=== PATIENT | female | born 1985 ===

== ENCOUNTER 2018-05-16 08:40 | Emergency (ER) | payer OTHER, MEDICAID ==
[2018-05-16 08:45] VITALS: BMI 30.1
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
[2018-05-16] MEDS ORDERED: Oxycodone/Acetaminophen 5/325 mg Tab PO ONE (09:38)
[2018-05-16] MEDS ORDERED: Oxycodone/Acetaminophen 5/325 mg Tab ONE (09:42)
--- NOTE | 2018-05-16 10:15 | CT ---
Date of service: 05/16/2018 PROCEDURE: CT HEAD WITHOUT CONTRAST. HISTORY: headache COMPARISON: None available. TECHNIQUE: Axial computed tomography images were obtained through the head/brain without intravenous contrast. Radiation dose: Total exam DLP = 856.85 mGy-cm. This CT exam was performed using one or more of the following dose reduction techniques: Automated exposure control, adjustment of the mA and/or kV according to patient size, and/or use of iterative reconstruction technique. FINDINGS: HEMORRHAGE: No intracranial hemorrhage. BRAIN: Normal solano-white matter differentiation and density are appreciated throughout the cerebrum and cerebellum with the brainstem appearing unremarkable as well. There is no mass effect. There is no suspicious extra-axial fluid collection and the midline brain anatomy appears diffusely unremarkable. VENTRICLES: Unremarkable. No hydrocephalus. CALVARIUM: No destructive bony lesion or displaced fracture identified including through the skullbase. PARANASAL SINUSES: Trace left sphenoid sinusitis. MASTOID AIR CELLS: Unremarkable as visualized. No inflammatory changes. OTHER FINDINGS: None. IMPRESSION: Unremarkable CT of the Head.
--- NOTE | 2018-05-16 10:43 | CT ---
Date of service: 05/16/2018 PROCEDURE: CT Cervical Spine without contrast HISTORY: neck pain COMPARISON: None available. TECHNIQUE: Axial computed tomography images were obtained of the cervical spine without the use of intravenous contrast. Coronal and sagittal reformatted images were created and reviewed. Radiation dose: Total exam DLP = 285.95 mGy-cm. This CT exam was performed using one or more of the following dose reduction techniques: Automated exposure control, adjustment of the mA and/or kV according to patient size, and/or use of iterative reconstruction technique. FINDINGS: VERTEBRAE: No fracture. Borderline straightening of the cervical curvature. No destructive bony lesion. DISCS/SPINAL CANAL/NEURAL FORAMINA: No significant central canal or neural foraminal stenosis. Discs heights are grossly preserved. PARASPINAL SOFT TISSUES: Unremarkable. OTHER FINDINGS: Heterogeneous density is seen within the left and right thyroid lobes. IMPRESSION: Borderline straightening the cervical curvature without demonstrated fracture or spondylolisthesis identified. Incidental note is made of mildly heterogeneous density throughout the thyroid gland.
[2018-05-16 12:24] VITALS: BP 115/65; PULSE 63; RESP 19; TEMP 98.7
[2018-05-16 18:10] VITALS: O2SAT 97
== END 2018-05-16 12:26 | disposition home or self-care (01) ==
LOC: H.ER 08:40
DX: M54.2 Cervicalgia (principal); V43.62XA Car passenger injured in collision with other type car in traffic accident, initial encounter; Y92.410 Unspecified street and highway as the place of occurrence of the external cause